=== PATIENT | male | born 1990 | race Caucasian/White ===

== ENCOUNTER 2023-05-08 17:18 | Emergency (ER) | payer BC ==
[~2023-05-08] VITALS: Ht 167.6 cm; Wt 100.0 kg
[2023-05-08 19:01] VITALS: BP 110/74; PULSE 83; TEMP 98.2
== END 2023-05-08 19:04 | disposition home or self-care (01) ==
LOC: COL.ER 17:18
DX: L50.0 Allergic urticaria (principal)
CPT/HCPCS: J1200; J2930